=== PATIENT | male | born 1950 | race Caucasian/White ===

== ENCOUNTER → 2019-10-05 11:29 | Outpatient (CLI) | payer OTHER, SELFPAY ==
--- NOTE | 2019-10-05 11:32 | DI.RAD.S_ITS ---
PROCEDURE: XR LUMBAR SPINE 2-3V INDICATIONS: fall, back contusion, ecchymosis, r/o fx TECHNIQUE: 3 views of the lumbar spine were acquired. COMPARISON: [facility], MR, LUMBAR SPINE W/O CONTRAST, 01/03/2014, 7:46. FINDINGS: Bones: There are 5 lumbar-type vertebral bodies. The lowest intervertebral disk space is designated as L5-S1. The vertebral body heights are well-maintained without evidence to suggest an acute compression fracture. The bone mineralization is within normal limits. Moderate multilevel degenerative changes of the lumbar spine are most pronounced at L3-4, which have progressed in the interim. There is moderate disc height loss at L3-4 with endplate sclerosis and disc osteophyte complexes. The degree of disc height loss has significantly increased in the interim. 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 There mild degenerative changes of the sacroiliac joints. Bilateral pistol skin fitter deformities of the proximal femurs are noted, incidentally. Soft tissues: The soft tissues of the imaged abdomen and pelvis are within normal limits. IMPRESSION: Moderate degenerative changes of the lumbar spine have progressed in the interim. No fractures. Dictated by: Oneil Jules M.D. on 10/05/2019 at 12:04 Approved by: Oneil Jules M.D. on 10/05/2019 at 12:06
--- NOTE | 2019-10-05 11:32 | DI.RAD.S_ITS ---
PROCEDURE: XR THORACIC SPINE 3V INDICATIONS: fall, back contusion, ecchymosis, r/o fx TECHNIQUE: 3 views of the thoracic spine were acquired. COMPARISON: [facility], THORACIC SPINE 3 VIEWS, 10/10/2011, 12:44. FINDINGS: Bones: On the lateral views, the cervicothoracic junction is adequately visualized and the alignment through this region is within normal limits. The vertebral body heights are within normal limits throughout the thoracic spine without evidence to suggest acute compression fracture. The bone mineralization is within normal limits. Moderate degenerative changes of the thoracic spine and slightly progressed in the interim with increasing degrees of disc height loss and anterior disc osteophyte complexes. Soft tissues: The imaged overlying soft tissues of the chest are within normal limits. 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 No displaced fractures. Dictated by: Oneil Jules M.D. on 10/05/2019 at 12:06 Approved by: Oneil Jules M.D. on 10/05/2019 at 12:07
== END ==
PROVIDERS: PCP Internal Medicine; Visit Provider Physician Assistant
DX: S30.0XXA Contusion of lower back and pelvis, initial encounter (principal); M54.9 Dorsalgia, unspecified; M47.816 Spondylosis without myelopathy or radiculopathy, lumbar region; M47.814 Spondylosis without myelopathy or radiculopathy, thoracic region; W19.XXXA Unspecified fall, initial encounter
CPT/HCPCS: 72072; 72100